=== PATIENT | male | born 1955 | race Caucasian/White ===

== ENCOUNTER 2018-09-06 10:08 | Emergency (ER) | payer OTHER ==
[~2018-09-06] VITALS: Ht 185.4 cm; Wt 81.6 kg
[2018-09-06 10:24] VITALS: BP 116/74
--- NOTE | 2018-09-06 10:26 | NUR ---
BIB [employer] C/O DIZZENESS AND WEAKNESS, PT IS AAOX3, NOT IN RESPIRATORY DISTRESS, V/S STABLE, KEPT RESTED AND COMFORTABLE.
--- NOTE | 2018-09-06 10:31 | NUR ---
SEEN AND EXAMINED BY DR. IRVING.
[2018-09-06] MEDS ORDERED: ALPRAZOLAM 0.5 MG TABLET ONE ×2 (10:37→10:39)
[2018-09-06] MEDS: ALPRAZOLAM 0.5 MG TABLET PO ONE ×2 (10:38→10:42)
[2018-09-06] MEDS ORDERED: ALPRAZOLAM 0.5 MG TABLET PO ONE (11:00)
--- NOTE | 2018-09-06 12:29 | NUR ---
D/C TO [employer] OFFICER, LEFT IN STABLE CONDTION, AMB WITH STEADY GAIT, ALL D/C PAPERWORKS WITH OFFICERS
== END 2018-09-06 12:32 ==
LOC: ER 10:15
DX: F11.23 Opioid dependence with withdrawal (principal); F13.10 Sedative, hypnotic or anxiolytic abuse, uncomplicated; F43.10 Post-traumatic stress disorder, unspecified